=== PATIENT | female | born 1990 | race Hispanic/Latino ===

== ENCOUNTER → 2023-08-02 10:41 | Outpatient (REF) | payer OTHER, SELFPAY ==
[2023-08-02 11:41] LABS: Hematocrit 41.7 % (37.0-47.0); Mean Corp Hgb Conc. 33.6 g/dL (33.0-37.0); Mean Corpuscular Hgb 27.6 pg (27.0-31.0); Mean Corpuscular Volume 82.2 fL (81.0-99.0); Mean Platelet Volume 9.9 fL (7.4-10.4); Platelet Count 288 10^3/uL (130-400); Red Blood Cell Count 5.07 10^6/uL (4.20-5.40); Red Cell Dist. Width 11.9 % (11.5-14.5); White Blood Cell Count 7.6 10^3/uL (4.8-10.8)
[2023-08-02 12:07] LABS: ALT (SGPT) 113 U/L (0-35); AST (SGOT) 62 U/L (14-36); Albumin 4.9 g/dl (3.5-5.0); Alkaline Phosphatase 157 U/L (38-126); Blood Urea Nitrogen 13 mg/dl (7-17); Calcium 9.7 mg/dl (8.4-10.2); Carbon Dioxide 28 mmol/L (22-30); Chloride 102 mmol/L (98-107); Glucose 95 mg/dl (70-99); Potassium 4.2 mmol/L (3.5-5.1); Sodium 138 mmol/L (135-145); Total Bilirubin 0.5 mg/dl (0.2-1.3); Total Protein 8.1 g/dl (6.3-8.2); eGFR > 60.00
[2023-08-02 12:33] LABS: TSH Reflex To Free T4 1.63 uIU/ml (0.47-4.68)
== END ==
LOC: CLINIC 10:41
PROVIDERS: ATTENDING PHYSICIAN Nurse Practitioner Adult Health
DX: Z00.00 Encounter for general adult medical examination without abnormal findings (principal)
CPT/HCPCS: 36415; 80053; 84443; 85027

== ENCOUNTER 2023-10-01 11:02 | Emergency (ER) | payer SELFPAY ==
[2023-10-01 11:19] VITALS: BP 132/99
--- NOTE | 2023-10-01 11:39 | ED.GENMED ---
History of Present Illness
General
Chief Complaint: Breast Problem
Source: patient and spouse
Exam Limitations: none
Time Seen by Provider: 10/01/23 11:25
Nursing documentation reviewed up to this point in time: agreed with
Travel History
Have you had any contact with someone who has COVID-19?: No
Do you have any symptoms of coronavirus? Fever > 100 degrees, chills, cough, shortness of breath, sore throat, loss of taste or smell, muscle aches, or headache?: Yes
Symptoms:: fever
History of Present Illness
History of Present Illness:
33-year-old female with no significant chronic medical issues who presents to the emergency room for evaluation of breast pain also complaining of fever and flulike symptoms. Patient reports that she started feeling unwell yesterday morning�she
says she woke up with a fever, chills, body aches. She says she has had a sore throat and a cough. She says that she started to notice some pain in her right breast yesterday afternoon. She says that today she noticed some increasing redness in
her right breast. She decided to come to the emergency room for assessment. She does note that she has been breast-feeding for 8 months. Denies any falls or trauma to the breast. She denies any other complaints on review of systems.
Review of Systems
Review of Systems
All Other Systems: ROS reviewed and negative except as documented in HPI and ROS
Constitutional: Reports fever, fatigue and chills
EENT: Reports sore throat; Denies runny nose
Respiratory: Reports cough; Denies trouble breathing
Cardiac: Denies chest pain or palpitations
ABD/GI: Denies abdominal pain, nausea, vomiting or diarrhea
: Denies flank pain
Musculoskeletal: Reports muscle pain (Body aches); Denies neck pain or back pain
Neurological: Denies headache
Phy Exam
Physical Exam
Physical Exam:
General: Awake, alert, oriented x3; appears mildly uncomfortable
Head: Normocephalic, atraumatic
Eyes: Conjunctiva normal
Throat: Airway intact, handling secretions
Neck: Trachea midline, supple without meningismus
Lungs: Clear to auscultation bilaterally, no wheezing, rales, rhonchi
Heart: Tachycardia with regular rhythm, no murmurs, gallops, or rubs
Breast: Female nurse in room as press cleaner //patient has symmetry of the breast with no significant swelling; right breast is diffusely tender, maximally at 10 o'clock position where she has some erythema and slight warmth but no fluctuance or
crepitus; no significant tenderness of the left breast
Abd: Soft, non distended, nontender
Neuro: No gross deficits
Extremities: Warm and well-perfused with no significant edema
Scores
Heart Failure Risk
Heart Failure Risk Score: Not Applicable
Heart Score for Chest Pain Patients
STEMI patient?: Not applicable
Withdrawal Assessment of Alcohol
Withdrawal Assessment Completed?: Not applicable
Course
Orders/Labs/Results
Orders:
Orders
10/01/23 11:36
US Breast Right Ltd Urgent
Comment:
Reason For Exam: redness, pain, fever--eval for abscess
10/01/23 11:37
0.9% Sodium Chloride 1000 ml [Nss] 1,000 ml IV BOLUS
Acetaminophen [Tylenol] 1,000 mg PO NOW STA
Ketorolac [Toradol] 15 mg IV NOW STA
10/01/23 11:39
Ibuprofen [Motrin] 400 mg PO NOW STA
10/01/23 11:50
COVID-19 Antigen Urgent
Source: Nasal Swab
Complete Blood Count/With Diff Urgent
Comprehensive Metabolic Panel Urgent
Monotest Urgent
Influenza A+B Rapid Molecular Urgent
SINDY Source: Nasal Swab
Specimen Description:
10/01/23 13:26
Vital Signs- Treatment ONCE
Frequency: Once
Comment: repeat
10/01/23 14:00
Dicloxacillin [Dynapen] 500 mg PO NOW STA
Abnormal Lab Results
10/01/23
11:50
WBC 12.0 H 10^3/uL
(4.8-10.8)
MCV 80.1 L fL
(81.0-99.0)
Absolute Neuts (auto) 9.3 H 10^3/uL
(1.4-6.5)
Absolute Monos (auto) 1.0 H 10^3/uL
(0.1-0.6)
Neutrophils % 77.5 H %
(42.2-75.2)
Lymphocytes % 13.5 L %
(20.5-51.1)
Glucose 100 H mg/dl
(70-99)
AST 62 H U/L
(14-36)
ALT 102 H U/L
(0-35)
Alkaline Phosphatase 135 H U/L
(38-126)
10/01/23 11:50
10/01/23 11:50
Vital Signs
Initial and Last Documented VS:
Initial Vital Signs
Temp Pulse Resp BP Pulse Ox
37.6 C 127 18 132/99 97
10/01/23 11:19 10/01/23 11:19 10/01/23 11:19 10/01/23 11:19 10/01/23 11:19
Last Documented Vital Signs
Temp Pulse Resp BP Pulse Ox
37.6 C 106 18 124/71 97
10/01/23 11:19 10/01/23 13:26 10/01/23 13:26 10/01/23 13:26 10/01/23 13:26
MDM/Problems Addressed
Differential Diagnosis Includes:
Breast pain: Mastitis, abscess, ductal obstruction
Fever: Mastitis, viral syndrome
MDM/Problems Addressed:
33-year-old female presents for evaluation of right breast pain, redness over the past 24 hours. She is currently breast-feeding. She has also had some viral URI type symptoms with sore throat, cough, runny nose and bodyaches over the past 24
hours. She is tachycardic but afebrile here, otherwise normal vitals. Exam as above. Will plan to place an IV check labs including CBC and CMP. Will swab for viruses and send Monospot. Will check ultrasound of the breast to rule out abscess.
Will treat with Tylenol and Motrin and provide some fluids. Reassess after the above.
Labs reviewed: CBC shows slight leukocytosis to 12. CMP no clinically significant abnormalities�she does have marginal transaminitis which appears identical to labs from earlier this year, will need outpatient follow-up. Viral swabs were negative
here. Her breast ultrasound shows some mild edema but no discrete fluid collection to suggest an abscess. Suspect that this is a mild case of acute mastitis. I think she can be reasonably treated with p.o. antibiotic as an outpatient and can
follow-up with COMMUNITY SERVICES MANAGER for reassessment. Discussed with COMMUNITY SERVICES MANAGER for antibiotic recommendation given that patient is continuing to breast-feed�patient can be treated with dicloxacillin 500 mg every 6 x 10 days which should be safe with breast-feeding.
Advised Tylenol and Motrin as well as needed. Patient comfortable with this plan. Spoke about return precautions all questions answered.
Chronic conditions affecting care:
Breast-feeding
*Radiology
Radiology exam reviewed: radiology read reviewed
*Pulse Oximetry
Patient hypoxic: no
*Critical Care Note
Total Time (30-74mins, 75-104mins- exclusive of procedures): Not Applicable
Data Reviewed
Source: patient
Patient Management
Discussion with other providers: Javascript Software Engineer (COMMUNITY SERVICES MANAGER)
ED Attending Note
-
Portions of this chart may have been created with voice recognition software.� Occasional wrong word or��sound alike� substitutions may have occurred due to the inherent limitations of voice recognition software.
Discharge Plan
Departure
Patient Disposition: Home (Routine Discharge)
Date of Disposition: 10/01/23
Time of Disposition: 14:05
Patient with high blood pressure during this ER visit?: No
Discharge Problem:
Mastitis
Instructions: Mastitis
Prescriptions:
New
dicloxacillin 500 mg capsule
500 mg PO Q6H 10 Days Qty: 40 0RF
acetaminophen [Tylenol Extra Strength] 500 mg tablet
1,000 mg PO Q6H PRN (Reason: fever or pain) Qty: 30 0RF
ibuprofen 400 mg tablet
400 mg PO Q6H PRN (Reason: fever or pain) Qty: 30 0RF
Referrals:
NONE,* [Family Provider] -
Activity Restrictions/Additional Instructions:
Debe realizar un seguimiento con barnes obstetra/ginec�logo o barnes m�dico de atenci�n primaria para que le vuelvan a evaluar el seno derecho jong la pr�xima semana. Debe sterling el antibi�josey seg�n lo prescrito; es seguro usarlo jong la lactancia.
Tambi�n deber� realizar un seguimiento para repetir los an�lisis de chiki, ya que mike pruebas de funci�n hep�nick volvieron a estar elevadas hoy en la mehdi de emergencias. Debe regresar a la mehdi de emergencias si la fiebre empeora y no mejora con
los medicamentos recetados, si el dolor o la hinchaz�n en el seno empeora o cualquier otro s�ntoma que le preocupe.
Rylan por visitar el [facility] del [facility].
1. Programe aileen nany de seguimiento seg�n las indicaciones. Llama ma�car a primera hora para concertar aileen nany.
2. Si est� indicado, tome mike medicamentos seg�n las instrucciones y lo indicado en la documentaci�n de gianni.
3. Si alguno de mike s�ntomas no mejora, persiste o se vuelve m�s grave dentro de 6 a 12 horas, regrese al departamento de emergencias para recibir atenci�n adicional.
4. Regrese al departamento de emergencias si presenta dolor de jania, dolor/rigidez de jonelle, fiebre superior a 100.4 F, dolor en el pecho, dificultad para respirar, n�useas persistentes, v�mitos, dificultad para hablar, dificultad para caminar,
entumecimiento/hormigueo, debilidad, signos. de infecci�n o cualquier otro s�ntoma que le preocupe.
Llame al [phone] si tiene alguna pregunta.
You should follow-up with your COMMUNITY SERVICES MANAGER or your primary physician to have your right breast reassessed within the next week. You should take your antibiotic as prescribed�this is safe to use with breast-feeding. You will also need to follow-up for
repeat blood work as your liver function tests were elevated once again today in the emergency room. You should return to the emergency room with worsening fevers that are not improved with medications as prescribed, worsening pain or swelling in
the breast or any other symptoms that are concerning to you.
Thank you for visiting the Emergency Department at [facility].
1. Please schedule a follow up appointment as directed. Call first thing tomorrow morning to make an appointment.
2. If indicated, please take your medications as instructed and indicated on discharge paperwork.
3. If any of your symptoms do not improve, or persist, or become more severe within 6-12 hours, please return to the emergency department for further care.
4. Please return to the emergency department if you develop a headache, neck pain/stiffness, fever greater than 100.4F, chest pain, shortness of breath, persistent nausea, vomiting, slurred speech, difficulty walking, numbness/tingling, weakness,
signs of infection or any other symptoms that are worrisome to you.
Please call [phone] if you have any questions.
Interventions
Interventions:
*Risk Screen - Suicide Last Done: 10/01/23 11:24
*General Assessment Last Done: 10/01/23 11:19
*Neglect/Abuse Screening Last Done: 10/01/23 11:24
ED- Fall Risk Assessment Last Done: 10/01/23 11:24
ED-Skin Assessment Last Done: 10/01/23 11:24
Discharge Date and Time
Print Language: UPPER SORBIAN
[2023-10-01] MEDS: TYLENOL 1000 MG PO (11:53)
[2023-10-01] MEDS: NSS 1000 IV (11:53)
[2023-10-01] MEDS: MOTRIN 400 MG PO (11:53)
[2023-10-01] MEDS: TORADOL 15 MG IV (12:13)
[2023-10-01 12:17] LABS: % Basophils 0.3 % (0-2); % Immature Granulocytes 0.3 % (0-0.5); % Lymphocytes 13.5 % (20.5-51.1); % Monocytes 8.4 % (1.7-9.3); % Neutrophils 77.5 % (42.2-75.2); Absolute Lymphocytes 1.6 10^3/uL (1.2-3.4); Absolute Neutrophils 9.3 10^3/uL (1.4-6.5); Hemoglobin 13.5 g/dL (12.0-16.0); Mean Corp Hgb Conc. 34.6 g/dL (33.0-37.0); Mean Corpuscular Hgb 27.7 pg (27.0-31.0); Mean Corpuscular Volume 80.1 fL (81.0-99.0); Mean Platelet Volume 9.5 fL (7.4-10.4); Nucleated Red Blood Cells % 0 %; Platelet Count 212 10^3/uL (130-400); Red Blood Cell Count 4.87 10^6/uL (4.20-5.40); Red Cell Dist. Width 12.5 % (11.5-14.5)
[2023-10-01 12:32] LABS: COVID-19 Antigen Negative (Negative)
[2023-10-01 12:36] LABS: ALT (SGPT) 102 U/L (0-35); AST (SGOT) 62 U/L (14-36); Albumin 4.6 g/dl (3.5-5.0); Alkaline Phosphatase 135 U/L (38-126); Blood Urea Nitrogen 14 mg/dl (7-17); Calcium 9.5 mg/dl (8.4-10.2); Carbon Dioxide 26 mmol/L (22-30); Chloride 102 mmol/L (98-107); Glucose 100 mg/dl (70-99); Potassium 3.7 mmol/L (3.5-5.1); Sodium 135 mmol/L (135-145); Total Protein 7.8 g/dl (6.3-8.2); eGFR > 60.00
[2023-10-01 12:49] LABS: Monotest Negative (Negative)
[2023-10-01 13:26] VITALS: BP 124/71
[2023-10-01] MEDS: DYNAPEN 500 MG PO (14:18)
== END 2023-10-01 15:57 | disposition home or self-care (01) ==
LOC: EMR 11:02
PROVIDERS: EMERGENCY PHYSICIAN Emergency Medicine
DX: N61.0 Mastitis without abscess (principal)
CPT/HCPCS: 99284; 96374; 96361; 76642; 80053; 85025; 86308; 87502; 87811

== ENCOUNTER 2024-09-11 15:38 | Emergency (ER) | payer SELFPAY ==
[2024-09-11 15:42] VITALS: BP 114/69
[2024-09-11 16:04] LABS: % Basophils 0.4 % (0-2); % Eosinophils 1.8 % (0-6); % Immature Granulocytes 0.1 % (0-0.5); % Lymphocytes 35.9 % (20.5-51.1); % Monocytes 6.8 % (1.7-9.3); Absolute Eosinophils 0.1 10^3/uL (0-0.7); Absolute Lymphocytes 2.8 10^3/uL (1.2-3.4); Absolute Monocytes 0.5 10^3/uL (0.1-0.6); Absolute Neutrophils 4.3 10^3/uL (1.4-6.5); Hematocrit 40.4 % (37.0-47.0); Mean Corp Hgb Conc. 34.7 g/dL (33.0-37.0); Mean Corpuscular Volume 80.8 fL (81.0-99.0); Mean Platelet Volume 9.9 fL (7.4-10.4); Nucleated Red Blood Cells % 0 %; Platelet Count 243 10^3/uL (130-400); Red Cell Dist. Width 12.1 % (11.5-14.5); White Blood Cell Count 7.8 10^3/uL (4.8-10.8)
[2024-09-11 16:06] LABS: Urine Albumin Negative (Neg - Trace); Urine Bilirubin Negative (Negative); Urine Character Clear (Clear); Urine Color Yellow; Urine Glucose Negative (Negative); Urine Ketone Negative (Negative); Urine Leukocyte 1+ (Negative); Urine Nitrite Negative (Negative); Urine Occult Blood 3+ (Negative); Urine Specific Gravity 1.015 (<1.030); Urine Urobilinogen Negative (Neg - 1+)
[2024-09-11 16:15] LABS: ALT (SGPT) 36 U/L (0-35); AST (SGOT) 30 U/L (14-36); Albumin 4.3 g/dl (3.5-5.0); Alkaline Phosphatase 98 U/L (38-126); Blood Urea Nitrogen 18 mg/dl (7-17); Carbon Dioxide 28 mmol/L (22-30); Glucose 83 mg/dl (70-99); Lipase 47 U/L (23-300); Total Bilirubin 0.3 mg/dl (0.2-1.3); Total Protein 7.2 g/dl (6.3-8.2); eGFR > 60.00
[2024-09-11 16:24] LABS: Urine Red Blood Cell 0-2 /HPF (0-2); Urine Squamous Cell >30 /LPF (Few)
[2024-09-11 16:25] LABS: Calcium 9.6 mg/dl (8.4-10.2); Chloride 103 mmol/L (98-107); Sodium 139 mmol/L (135-145); Urine Bacteria Few (Negative)
--- NOTE | 2024-09-11 17:13 | ED.GENMED ---
History of Present Illness
General
Chief Complaint: Abdominal Symptoms
Source: patient and binder fixer
Exam Limitations: none
Time Seen by Provider: 09/11/24 16:50
History of Present Illness
History of Present Illness:
33yoF with no significant past medical history presenting for evaluation of abdominal pain. Patient is Gambian-speaking and history is obtained with the assistance of a video binder fixer. Patient reports pain in the right side of her abdomen for
the past week and a half. Pain radiates to the flank, hip, and down the right leg. Pain is worse with movement, breathing, and coughing. She denies any trauma or inciting incident. She has been taking Tylenol without much relief. The pain is
making it difficult for her to sleep at night. She is otherwise asymptomatic and denies any fevers, chills, vomiting, diarrhea, constipation, dysuria. She had similar pain a few years ago while she was in [place] and was told that she had a 'bad
liver' and was given medications with improvement. Only prior abdominal surgery is a section.
Phy Exam
General Physical Exam
General Presentation: well appearing and no apparent distress
General age: appears stated age
General Skin: warm and dry
General Habitus: normal
General Mental: alert
ENT Exam
ENT Exam: normocephalic
Cardiovascular Exam
Cardiovascular Exam: regular rate/rhythm
Pulmonary Exam
Pulmonary Exam: lungs clear, no respiratory distress, no rales, no crackles and no rhonchi
Gastrointestinal Exam
Gastrointestinal Exam: soft, non distended and other (+Tenderness to RUQ/RLQ. Abdomen soft, non-distended. No rebound or guarding.)
Neurological Exam
Neurological Exam: alert
[place] Coma Scale
Eye Opening: Spontaneous
Verbal Response: Oriented
Motor Response: Obeys Commands
GCS Total Score: 15
Musculoskeletal Exam
Musculoskeletal Exam: other (+Tenderness to R paraspinal lumbar region. No skin changes. ROM of R hip normal. No pitting edema to RLE. 2+ DP pulse. )
Skin Exam
Skin Exam: normal color and warm/dry
Psychiatric Exam
Psychiatric Exam: normal mood/affect
Course
Orders/Labs/Results
Orders:
Orders
09/11/24 15:51
Complete Blood Count/With Diff Urgent
Comprehensive Metabolic Panel Urgent
HCG, Serum Qualitative Screen Urgent
Comment: ADD ON
Lipase Urgent
Urine Culture Reflexed from UA [Urinalysis Reflex To Culture] Urgent
Date Specimen was Collected: 09/11/24
Time Specimen was Collected: 15:45
Urine Microscopic Reflex Cult Urgent
Urine Culture Urgent
SINDY Source: U
Specimen Description:
Date Specimen was Collected: 09/11/24
Time Specimen was Collected: 15:45
09/11/24 17:12
Add On- LAB Urgent
Tests Added?: HCG
0.9% Sodium Chloride 1000 ml [Nss] 1,000 ml IV BOLUS
Ketorolac [Toradol] 15 mg IV NOW STA
Venous Doppler Lwr Ext Rt [US Periph Venous LOWER Ext RT] Urgent
Comment:
Reason For Exam: R leg pain
09/11/24 17:19
D-Dimer Urgent
09/11/24 17:57
CT Abd/pelvis W Iv Cont Urgent
Comment:
Reason For Exam: R flank pain, R sided abd pain
Abnormal Lab Results
09/11/24
15:51
MCV 80.8 L fL
(81.0-99.0)
BUN 18 H mg/dl
(7-17)
ALT 36 H U/L
(0-35)
Ur Occult Blood Reflex 3+ A
(Negative)
Leukocyte Esterase Rfl 1+ A
(Negative)
Urine Bacteria (Reflex) Few A
(Negative)
09/11/24 15:51
09/11/24 15:51
Vital Signs
Initial and Last Documented VS:
Initial Vital Signs
Temp Pulse Resp BP Pulse Ox
98.1 F 77 20 114/69 99
09/11/24 15:42 09/11/24 15:42 09/11/24 15:42 09/11/24 15:42 09/11/24 15:42
Last Documented Vital Signs
Temp Pulse Resp BP Pulse Ox
98.1 F 74 18 116/74 99
09/11/24 15:42 09/11/24 21:46 09/11/24 21:46 09/11/24 21:46 09/11/24 21:46
MDM/Problems Addressed
Differential Diagnosis Includes:
33yoF here with R sided abd pain x 1.5 weeks. Radiates to R flank, R hip pain, and R leg. Worse with movement. Otherwise asymptomatic. VSS. She is well-appearing in no acute distress. No signs of peritonitis on abdominal exam. Differential
diagnosis includes but is not limited to: Appendicitis, colitis, pyelonephritis, kidney stone, ovarian cyst, musculoskeletal
Initial ED plan: Abdominal labs and UA obtained in triage. Labs overall unremarkable including normal white count and renal function. No overt signs of infection on urinalysis. Will check D-dimer, hCG, venous duplex, and CT CAP vs. AP depending
on D-dimer results. IV Toradol and fluid bolus for symptoms.
*Critical Care Note
Total Time (30-74mins, 75-104mins- exclusive of procedures): Not Applicable
Update Note
Update Note:
D-dimer normal making PE very unlikely. Venous duplex negative for DVT. hCG negative. CT abdomen obtained which is negative for acute findings. There is a 1.7 cm right adnexal cyst. Appendix is normal. Pain improved on reassessment. No
indication for hospitalization. Supportive care discussed including heat and NSAIDs. Advised follow-up with gynecology and ED return precautions reviewed. Patient in agreement with plan and was discharged stable condition.
ED Attending Note
-
Portions of this chart may have been created with voice recognition software.� Occasional wrong word or��sound alike� substitutions may have occurred due to the inherent limitations of voice recognition software.
Discharge Plan
Departure
Patient Disposition: Home (Routine Discharge)
Date of Disposition: 09/11/24
Time of Disposition: 21:40
Patient with high blood pressure during this ER visit?: No
Discharge Problem:
Cyst of right ovary, Right sided abdominal pain
Instructions: Ovarian cyst - ED discharge instructions
Prescriptions:
No Action
dicloxacillin 500 mg capsule
500 mg PO Q6H 10 Days Qty: 40 0RF
acetaminophen [Tylenol Extra Strength] 500 mg tablet
1,000 mg PO Q6H PRN (Reason: fever or pain) Qty: 30 0RF
ibuprofen 400 mg tablet
400 mg PO Q6H PRN (Reason: fever or pain) Qty: 30 0RF
Referrals:
[facility] [Outside]
Randy Nash MD [Active] -
NONE,* [Family Provider] -
Activity Restrictions/Additional Instructions:
Take ibuprofen 600 mg every 6 hours as needed. Apply heat to affected area.
Please call tomorrow to schedule a follow-up with [facility]AL[facility]OL [facility] TE[facility]. Return to the ER with any worsening symptoms including severe pain.
Interventions
Interventions:
*Risk Screen - Suicide Last Done: 09/11/24 17:00
*General Assessment Last Done: 09/11/24 15:42
*Neglect/Abuse Screening Last Done: 09/11/24 17:00
*ED- Fall Risk Assessment Last Done: 09/11/24 17:00
*ED COVID-19 Vaccine History Last Done: 09/11/24 17:00
*Nursing Disposition Last Done: 09/11/24 21:49
JB-Xeqkgq-Mvhwxaqglf Assessment Last Done: 09/11/24 17:00
Discharge Date and Time
Discharge Date/Time: 09/11/24 21:49
Print Language: SRI LANKAN
[2024-09-11] MEDS: TORADOL 15 MG IV (17:20)
[2024-09-11] MEDS: NSS 1000 IV (17:20)
[2024-09-11 17:40] LABS: D-Dimer 0.32 ug/mlFEU (0.00-0.50)
[2024-09-11 18:21] LABS: HCG, Serum Qualitative Screen Negative
[2024-09-11 21:46] VITALS: BP 116/74
== END 2024-09-11 21:49 | disposition home or self-care (01) ==
LOC: EMR 15:38
PROVIDERS: Physician Assistant; EMERGENCY PHYSICIAN Emergency Medicine
DX: N83.201 Unspecified ovarian cyst, right side (principal); R10.9 Unspecified abdominal pain; R05.9 Cough, unspecified
CPT/HCPCS: 99284; 96374; 96361; 74177; 80053; 81003; 81015; 83690; 84703; 85025; 85379; 87086; 93971; Q9967

== ENCOUNTER → 2024-09-23 09:48 | Outpatient (REF) | payer OTHER, SELFPAY ==
[2024-09-23 10:51] LABS: Urine Albumin Negative (Neg - Trace); Urine Bilirubin Negative (Negative); Urine Character Clear (Clear); Urine Color Yellow; Urine Glucose Negative (Negative); Urine Ketone Negative (Negative); Urine Leukocyte 1+ (Negative); Urine Nitrite Negative (Negative); Urine Occult Blood 2+ (Negative); Urine Urobilinogen Negative (Neg - 1+)
[2024-09-23 11:06] LABS: Urine Squamous Cell 16-20 /LPF (Few)
[2024-09-23 11:07] LABS: Urine Bacteria Few (Negative)
[2024-09-23 11:42] LABS: % Basophils 0.3 % (0-2); % Eosinophils 1.9 % (0-6); % Immature Granulocytes 0.2 % (0-0.5); % Lymphocytes 36.4 % (20.5-51.1); % Monocytes 4.8 % (1.7-9.3); % Neutrophils 56.4 % (42.2-75.2); Absolute Eosinophils 0.1 10^3/uL (0-0.7); Absolute Lymphocytes 2.1 10^3/uL (1.2-3.4); Absolute Monocytes 0.3 10^3/uL (0.1-0.6); Absolute Neutrophils 3.3 10^3/uL (1.4-6.5); Hematocrit 40.5 % (37.0-47.0); Hemoglobin 13.7 g/dL (12.0-16.0); Mean Corp Hgb Conc. 33.8 g/dL (33.0-37.0); Mean Corpuscular Hgb 27.8 pg (27.0-31.0); Mean Corpuscular Volume 82.3 fL (81.0-99.0); Mean Platelet Volume 9.6 fL (7.4-10.4); Nucleated Red Blood Cells % 0 %; Platelet Count 282 10^3/uL (130-400); Red Blood Cell Count 4.92 10^6/uL (4.20-5.40); Red Cell Dist. Width 12.7 % (11.5-14.5); White Blood Cell Count 5.8 10^3/uL (4.8-10.8)
[2024-09-23 12:21] LABS: ALT (SGPT) 26 U/L (0-35); AST (SGOT) 24 U/L (14-36); Albumin 4.2 g/dl (3.5-5.0); Alkaline Phosphatase 93 U/L (38-126); Blood Urea Nitrogen 12 mg/dl (7-17); Calcium 9.7 mg/dl (8.4-10.2); Carbon Dioxide 28 mmol/L (22-30); Chloride 104 mmol/L (98-107); Glucose 90 mg/dl (70-99); HDL Cholesterol 43 mg/dl; LDL Cholesterol, Calculated 101 mg/dl; Potassium 4.8 mmol/L (3.5-5.1); Sodium 140 mmol/L (135-145); Total Bilirubin 0.3 mg/dl (0.2-1.3); Total Cholesterol 165 mg/dl (50-199); Triglyceride 108 mg/dl (10-149); Very Low Density Lipoprotein 21 mg/dl (0-30); eGFR > 60.00
== END ==
LOC: CLINIC 09:48
PROVIDERS: ATTENDING PHYSICIAN Physician Assistant Medical
DX: Z01.419 Encounter for gynecological examination (general) (routine) without abnormal findings (principal)
CPT/HCPCS: 80053; 80061; 81003; 81015; 85025; 87086; 87088; 87186